=== PATIENT | male | born 1975 | race Two or more races ===

== ENCOUNTER → 2022-12-15 11:23 | Outpatient (BNVA) | payer OTHER, SELFPAY | PROVIDERS: Visit Provider Internal Medicine | DX: M54.12 Radiculopathy, cervical region (principal); M79.621 Pain in right upper arm | CPT/HCPCS: 99202 ==

== ENCOUNTER → 2022-12-16 07:44 | Outpatient (BNVA) | payer OTHER, SELFPAY | PROVIDERS: Visit Provider Internal Medicine | DX: M25.511 Pain in right shoulder (principal) | CPT/HCPCS: 99213 ==

== ENCOUNTER → 2022-12-18 15:18 | Outpatient (BNVA) | payer OTHER, SELFPAY | PROVIDERS: Visit Provider Internal Medicine | DX: M25.511 Pain in right shoulder (principal); M54.12 Radiculopathy, cervical region | CPT/HCPCS: 99213 ==

== ENCOUNTER → 2022-12-30 14:48 | Outpatient (BNVA) | payer OTHER, SELFPAY | PROVIDERS: Visit Provider Internal Medicine | DX: M79.621 Pain in right upper arm (principal); M54.12 Radiculopathy, cervical region | CPT/HCPCS: 99213 ==

== ENCOUNTER → 2023-01-09 12:52 | Outpatient (BNVA) | payer OTHER, SELFPAY | PROVIDERS: Visit Provider Internal Medicine | DX: M50.123 Cervical disc disorder at C6-C7 level with radiculopathy (principal) | CPT/HCPCS: 99214 ==

== ENCOUNTER → 2023-01-13 13:46 | Outpatient (BNVA) | payer OTHER, SELFPAY | PROVIDERS: Visit Provider Internal Medicine | DX: M50.123 Cervical disc disorder at C6-C7 level with radiculopathy (principal) | CPT/HCPCS: 99213 ==

== ENCOUNTER → 2023-01-16 14:43 | Outpatient (BNVA) | payer OTHER, SELFPAY | PROVIDERS: Visit Provider Internal Medicine | DX: M79.631 Pain in right forearm (principal); M51.16 Intervertebral disc disorders with radiculopathy, lumbar region | CPT/HCPCS: 99214 ==

== ENCOUNTER → 2023-01-22 13:33 | Outpatient (BNVA) | payer OTHER, SELFPAY | PROVIDERS: Visit Provider Internal Medicine | DX: M79.621 Pain in right upper arm (principal); M54.12 Radiculopathy, cervical region | CPT/HCPCS: 99214 ==

== ENCOUNTER → 2023-02-02 14:50 | Outpatient (BNVA) | payer OTHER, SELFPAY | PROVIDERS: Visit Provider Internal Medicine | DX: M54.12 Radiculopathy, cervical region (principal); M79.662 Pain in left lower leg; M79.661 Pain in right lower leg | CPT/HCPCS: 99213 ==

== ENCOUNTER → 2023-02-24 14:28 | Outpatient (BNVA) | payer OTHER, SELFPAY | PROVIDERS: Visit Provider Internal Medicine | DX: M54.12 Radiculopathy, cervical region (principal); R25.2 Cramp and spasm; M79.605 Pain in left leg; M79.604 Pain in right leg | CPT/HCPCS: 99213 ==

== ENCOUNTER → 2024-10-10 13:37 | Outpatient (BNVA) | payer OTHER, SELFPAY | PROVIDERS: Visit Provider Physician Assistant Medical | DX: M24.811 Other specific joint derangements of right shoulder, not elsewhere classified (principal); S16.1XXA Strain of muscle, fascia and tendon at neck level, initial encounter; S46.811A Strain of other muscles, fascia and tendons at shoulder and upper arm level, right arm, initial encounter; S39.012A Strain of muscle, fascia and tendon of lower back, initial encounter; X50.9XXA Other and unspecified overexertion or strenuous movements or postures, initial encounter; M54.16 Radiculopathy, lumbar region | CPT/HCPCS: 72110; 73030; 99204 ==

== ENCOUNTER → 2024-10-13 09:47 | Outpatient (BNVA) | payer OTHER, SELFPAY | PROVIDERS: Visit Provider Physician Assistant Medical | DX: M54.12 Radiculopathy, cervical region (principal); M25.511 Pain in right shoulder; M54.16 Radiculopathy, lumbar region | CPT/HCPCS: 99213 ==

== ENCOUNTER → 2024-10-18 10:48 | Outpatient (BNVA) | payer OTHER, SELFPAY | PROVIDERS: Visit Provider Physician Assistant Medical | DX: M54.12 Radiculopathy, cervical region (principal); M25.511 Pain in right shoulder; M24.811 Other specific joint derangements of right shoulder, not elsewhere classified; M54.16 Radiculopathy, lumbar region | CPT/HCPCS: 99213 ==

== ENCOUNTER → 2024-10-24 13:08 | Outpatient (BNVA) | payer OTHER, SELFPAY | PROVIDERS: Visit Provider Physician Assistant Medical | DX: M54.12 Radiculopathy, cervical region (principal); M24.811 Other specific joint derangements of right shoulder, not elsewhere classified; S46.811A Strain of other muscles, fascia and tendons at shoulder and upper arm level, right arm, initial encounter; S39.012A Strain of muscle, fascia and tendon of lower back, initial encounter; M54.16 Radiculopathy, lumbar region; X50.9XXA Other and unspecified overexertion or strenuous movements or postures, initial encounter | CPT/HCPCS: 99213 ==

== ENCOUNTER → 2024-10-31 10:52 | Outpatient (BNVA) | payer OTHER, SELFPAY | PROVIDERS: Visit Provider Physician Assistant Medical | DX: M54.12 Radiculopathy, cervical region (principal); M24.811 Other specific joint derangements of right shoulder, not elsewhere classified; M54.16 Radiculopathy, lumbar region; S39.012D Strain of muscle, fascia and tendon of lower back, subsequent encounter; X50.9XXD Other and unspecified overexertion or strenuous movements or postures, subsequent encounter | CPT/HCPCS: 99213 ==

== ENCOUNTER 2024-11-23 12:42 | Outpatient (REF) | payer OTHER, SELFPAY ==
--- NOTE | ~2024-11-23 | XR_ITS ---
EXAMINATION: XR SHOULDER 2 OR MORE VIEWS RIGHT HISTORY: M25.511 - Pain in right shoulder COMPARISON: Comparison is made with the prior examination dated 10/10/2024. FINDINGS: Two views of the right shoulder are submitted. Osseous mineralization is normal. There is no fracture or dislocation. The glenohumeral joint is maintained. Again seen is moderate osteoarthritis of the AC joint with osteophyte formation and joint space narrowing. The soft tissues are unremarkable. XR/XR shoulder RT min 2V IMPRESSION: Moderate osteoarthritis of the AC joint. Electronically signed by: Michael Jamison MD 11/24/2024 01:34 PM EDT
--- OUTSIDE RECORDS SUMMARY | 2024-11-24 15:16 | XMS_ITS | Clinical Summary ---
Author Organization [facility] Address [address] [place] [address] Care Team Providers Care Temperature Inspector Name Role Phone Allan Dejesus Primary Care Provider Source Comments PLEASE NOTE, if this patient [...] Description 12/07/2024 3:40 PM EDT Office Visit [facility] [address] [place] [id number] Allan Dejesus PA [address] [place] [address] Stefania Gordon [address] [place] [address] Health Maintenance Due Date Last Done Comments Anxiety Screening 1976 CT Colonography 2021 Colonoscopy 2021 Colorectal Cancer Screening 2021 FIT/gFOBT 2021 Fecal DNA 2021 Flexible Sigmoidoscopy 2021 Annual Preventive Care Visit 12/03/202204/2022, 12/07/2020, 09/30/2017, Additional history exists Imm-Hepatitis B (2 of 2 - Cp G 2-dose series) 03/16/2023 02/16/2023 [id number] ( season) 2024 021, 11/19/2020 Imm-Influenza (#1) [...] A1C 6.2(H) <5.7 % of total Hgb [facility] Comment: For someone without known diabetes, a [...] children. MEAN PLASMA GLUCOSE 143 mg/dL (calc) [facility] Blood Blood / Unknown 09/17/2023 4 :31 PM EST 09/17/2023 4:32 PM EST us Allan MENDEZ LAB - BLOOD DRAW Edited Result - Final [employer] [address] [address], [employer] [address] [address] * HIV 1/2 AG & AB W/RFLX (4TH GEN) (02/17/2023 3:34 PM EDT) HIV AG/AB, 4TH GEN NON-REAC TIVE NON-REAC TIVE [employer] [facility] Comment: HIV-1 antigen and HIV-1/HIV-2 [...] ?? For additional information please refer to http://Exposed Vocals.Feniks/faq/VKK267 (This link is being provided for informational/ educational purposes only.) The performance of this assay has not been clinically validated in patients less than 2 years old. Blood Blood / Unknown 02/17/2023 3 :34 PM EDT 02/17/2023 3:35 PM EDT Allan MENDEZ LAB - BLOOD DRAW Final Result [facility] [address] [place] [address], [employer] [address] [address] * (ABNORMAL) LIPID PANEL (02/17/2023 9:24 AM EDT) [facility] CHOLESTEROL, TOTAL 178 <200 mg/dL [employer] [facility] HDL CHOLESTEROL 36(L) > OR = 40 mg/dL [facility] TRIGLYCERIDES 150(H) <150 mg/dL [facility] LDL-CHOLESTEROL 116(H) 99 mg/dL (calc) [facility] Comment: Reference range: <100 Desirable range <100 mg/dL for primary prevention; ?? <70 mg/dL for patients with CHD or diabetic patients with > or = 2 CHD risk factors. LDL-C is now calculated using the Brianna calculation, which is a validated novel method providing better accuracy than the Friedewald equation in the estimation of LDL-C. Sudheer CRYSTAL et al. KEYA. 2013;310(19): 1595-1584 (http://education.[employer].appCREAR/faq/MHZ313) CHOL/HDLC RATIO 4.9 <5.0 (calc) [facility] NON-HDL CHOLESTEROL 142(H) <130 mg/dL (calc) [facility] Comment: For patients with diabetes plus 1 major ASCVD risk factor, treating to a non-HDL-C goal of <100 mg/dL (LDL-C of <70 mg/dL) is considered a therapeutic option. Blood Blood / Unknown 02/17/2023 9 :24 AM EDT 02/17/2023 9:25 AM EDT us Allan MENDEZ LAB - BLOOD DRAW Final Result Performing Organization Address [facility]/ZIP Co de Phone Number [employer] [address] [place] [address], [employer] [address] [address] * HEPATITIS C AB W/RFLX HCV RNA, QT, RT PCR (03/04/2022 2:37 PM EDT) HEPATITIS C ANTIBODY NON-REACT RYAN NON-REACT RYAN [facility] SIGNAL TO CUT-OFF 0.19 <1.00 [facility] Comment: HCV antibody was non-reactive. There is no laboratory evidence of HCV infection. In most cases, no further action is required. However, if recent HCV exposure is suspected, a test for HCV RNA (test code 07953) is suggested. For additional information please refer to http://education.Feniks/faq/IJB17h3 (This link is being provided for informational/ educational purposes only.) Blood Blood / Unknown 03/04/2022 2 :37 PM EDT 03/04/2022 2:37 PM EDT us Allan MENDEZ LAB - BLOOD DRAW Edited Result - Final Performing Organization Address City/[facility]/ZIP Co de Phone Number [employer] [facility] [address] [address], [employer] [address],[facility] [place] [address] from Last 3 Months or Most Recently Relevant to Health Maintenance [place] [facility] Care Teams Temperature Inspector Relationship Specialty Start Date End Date Allan Dejesus PA [address] [place] [address] PCP - General Internal Medicine 07/29/16
--- OUTSIDE RECORDS SUMMARY | 2024-11-24 15:16 | XMS_ITS | Clinical Summary ---
Author Organization [facility] Address [address] [place] [address] Phone Care Team Providers Care Beater Engineer Name Role Phone Arun Givens MD Primary Care Provider [phone] Allergies No known active allergies Medications PARoxetine [...] EDT - 10/09/2024 11:[address] [facility] [address] [place] [address] Arun Feldman MD Cervical radiculopathy [...] [place]ID - [place] GENER[place] GENER[place] Care Teams Beater Engineer Relationship Specialty Start Date End Date Arun Givens MD [facility] [place] [address] PCP - General Internal Medicine 12/05/21
== END 2024-11-23 12:43 | disposition home or self-care (01) ==
LOC: HO.HOSX 12:42
PROVIDERS: Visit Provider Orthopaedic Surgery
DX: M25.511 Pain in right shoulder (principal)
CPT/HCPCS: 73030; 99202

== ENCOUNTER 2024-11-23 14:29 | Outpatient (AMB) | payer OTHER, SELFPAY ==
--- NOTE | 2024-11-23 14:32 | MHC.OFFVIS ---
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 While at work while pushing/pulling ~500lbs he strained his right shoulder - work connection has concerns of cervical and lumbar radiculopathy. He was given Gabapentin, methocarbamol, lidocaine patches and was also referred to a chiropractor. He has no relief with the chiropractor and was later also prescribed prednisone. Patient was previously seen at [facility] for his neck and was given injections, but they no longer take WC. He states that he has had this same injury before about 2 years ago. He informed me that he re injured his shoulder on 10/07/24. The patient states that he has seen Dr. Ruiz for his neck pain in the past. He describes his neck pain as sharp in nature. His neck pain radiates down his right arm. He also reports weakness in his right arm. He states that he has not had an MRI of his cervical spine or right shoulder. Configuration Specialist Services: Configuration Specialist Present (Andre ([id number])) Allergies No Known Allergies Allergy (Verified 11/23/24 14:41) Medication List - Last Reconciled 11/23/24 by Glynn Paz MD duloxetine 60 mg PO DAILY lidocaine 5% 1 patch topically 1 patch daily q 12 hours; leave on most painful area for up to 12 hrs lorazepam (Ativan) 0.5 mg PO DAILY oxycodone-acetaminophen 5-325 mg 1 tab PO DAILY valsartan-hydrochlorothiazide 160-25 mg 1 tab PO DAILY [facility] Social History (Updated 11/23/24 @ 14:44 by Shelby Gordon) Alcohol intake: never Patient Tobacco Use Status: Never used Tobacco Current occupational status: unemployed Current occupation: munitions factory worker/ right hand dominant Physical Exam Vital Signs: BMI result Body Mass Index 41.3 Const Other: Well-nourished well-developed very friendly male awake alert and oriented x3 in no acute distress Neck Other: Cervical spine examination shows right-sided paraspinal muscle tenderness, pain with range of motion, positive Spurling's test, 4/5 strength with testing of his right biceps and wrist extensors when compared to 5/5 strength on his left side Extrem Other: Right shoulder examination shows decreased range of motion when compared to his left shoulder, 4+ out of 5 strength with supraspinatus testing, positive impingement signs, tenderness over his acromioclavicular joint, no instability Results Reviewed Results Reviewed: X-rays of the patient's right shoulder show severe acromioclavicular joint narrowing, a type 2 acromion, no acute bony abnormalities Assessment & Plan Assessment & Plan (1) Right shoulder pain: Code(s): M25.511 - Pain in right shoulder Category: Medical (2) Neck pain on right side: Code(s): M54.2 - Cervicalgia Category: Medical Plan Mr. Steven Harris presents with progressively worsening neck pain which radiates into his right arm as well as associated right arm weakness possibly due to cervical stenosis versus a disc herniation. Thus, I will send the patient for an MRI of his cervical spine for further evaluation. I will see him back once the MRI is completed to discuss the findings. The patient also has right shoulder pain and weakness due to impingement syndrome and possible rotator cuff tearing. We will hold off on a right shoulder MRI for now. The patient will continue with his range of motion exercises in the meantime to prevent stiffness. He will contact me prior to his follow-up appointment should his symptoms worsen in any way. I spent 21 minutes in reviewing the patient's records and imaging studies, seeing the patient and documenting in the medical record. Orders: Orders MR cervical spine wo con Today M54.2 - Cervicalgia XR shoulder RT min 2V Today M25.511 - Pain in right shoulder Coding Level of Care Code New Pt Level 3 (78006) Complex EM visit Add On G2211 Diagnoses Right shoulder pain M25.511 Neck pain on right side M54.2
[2024-11-23 14:44] VITALS: BMI 41.3
--- OUTSIDE RECORDS SUMMARY | 2024-11-23 15:47 | XMS_ITS | Clinical Summary ---
Author Organization [facility] Address [address] [place] [address] Care Team Providers Care Wet Pan Operator Name Role Phone Allan Dejesus Primary Care Provider [phone] Source Comments PLEASE NOTE, if this patient is a minor, it may be UNLAWFUL to discuss sensitive information that is contained in these records (such as FAMILY PLANNING, MENTAL HEALTH or SUBSTANCE ABUSE) with the minor patient's parent or other person without the patient's specific authorization.[facility] Allergies No known active allergies Medications blood pressure monitorIndicatio ns:Essential hypertension Goal BP < 130/80 1 Kit 2 Active compr.lisa mulligan long, largeIn dications:Periph eral edema Use for compression goal 15-20 mmHg 14 Each 2 Active blood pressure monitorIndicatio ns:Essential hypertension Goal < 130/80 1 Kit 2 Active hydrocortisone (ANUSOL-HC) 2.5 % topical creamIndications :Hemorrhoids, unspecified hemorrhoid type Place rectally 2 (two) times daily 30 g 3 Active mupirocin calcium (BACTROBAN) 2 % creamIndications :Folliculitis Apply topically 3 (three) times daily 15 g 2 4 Active mupirocin (BACTROBAN) 2 % ointmentIndicati ons:Folliculitis Apply 1 Application topically 3 (three) times daily 22 g 4 Active traMADoL (ULTRAM) 50 mg tablet Take 1 Tablet by mouth every 6 (six) hours as needed for pain 45 Tablet 4 Active pregabalin (LYRICA) 75 mg capsule Take 75 mg by mouth 2 (two) times daily 4 Active PARoxetine (PAXIL) 10 mg tabletIndication s:Anxiety Take 1 Tablet by mouth every morning 60 Tablet 1 4 Active valsartan-hydroc hlorothiazide (DIOVAN-HCT) 160-25 mg per tabletIndication s:Essential hypertension Take 1 Tablet by mouth once daily 90 Tablet 4 Active Active Problems Problem Noted Date Diagnosed Date Food insecurity 10/22/2023 Financial difficulties 10/22/2023 Lack of access to transportation 10/22/2023 Essential hypertension 09/05/2023 Obesity (BMI 35.0-39.9 without comorbidity) 04/27 Prediabetes 07/28/2014 Vitamin D deficiency disease 07/26/2014 Resolved Problems Problem Noted Date Diagnosed Date Resolved Date Lumbosacral radiculopathy 07/26/2014 Immunizations Immunization Administration Dates Next Due Flu, Preservative Free 05/21/2023,05/14/2022 Hep B,adult,adjuvanted (HEPLISAV) 02/16/2023 INFLUENZA, SEASONAL, INJECTABLE 06/04/2016 Moderna COVID-19 Vaccine, re d cap blue label, 12+ Primary Series 12/17/2020,11/19/2020 TDAP 03/18/2021 Family History Medical History Relation Name Comments No Known Problems Brother 4 COPD Father Cancer Father Leukemia Hypertension Mother No Known Problems Sister 1 Relation Name Status Comments Brother 4 Alive Father Mother Alive Sister 1 Alive Social History Tobacco Use Types Packs/Day Years Used Date Smoking Tobacco: Never Smokeless Tobacco: Never Alcohol Use Standard Drinks/Week Comments Yes 0 (1 standard drink = 0.6 oz pur e alcohol) sometimes Social Connections Answer Date Recorded Connectedness 1 10/22/2023 Financial Resource Strain Answer Date R ecorded Financial Resource Strain 2 2023 Stress Answer Date Recorded Stress 1 10/22/2023 Physical Activity Answer Date Recorded Physical Activity 0 03/19/2019 Food Insecurity Answer Date Recorded Food 2 10/22/2023 Transportation Needs Answer Date Record ed Transportation 1 10/22/2023 Housing Stability Answer Date Recorded Housing 1 10/22/2023 Safety and Environment Answer Date Romeo rded Safety 1 10/22/2023 Utilities Answer Date Recorded Utilities 1 10/22/2023 Employment Answer Date Recorded Employment 0 03/19/2019 Sex and Gender Information Value Date Recorded Sex Assigned at Male 10/01/2017 5:35 AM PST Legal Sex Male 11:55 AM PDT Gender Identity Male 10/01/2017 5:35 AM PST Sexual Orientation Straight 10/01/2017 5: 35 AM PST Last Filed Vital Signs Vital Sign Reading Time Taken Comments Blood Pressure 122/84 02/03/2024 5:00 PM EDT Pulse 78 02/03/2024 5:00 PM EDT Temperature 37 ??C (98.6 ??F) 02/03/2024 5:00 PM EDT Respiratory Rate 18 02/03/2024 5:00 PM EDT Oxygen Saturation 97% 02/03/2024 5:00 PM EDT Inhaled Oxygen Concentration - - Weight 126.6 kg (279 lb) 02/03/2024 5:00 PM EDT Height 172.7 cm (5' 8 ) 02/03/2024 5:00 PM EDT Body Mass Index 42.42 02/03/2024 5:00 PM EDT Plan of Treatment Upcoming Encounters Date Type Department Care Team (Late st Contact Info) Description 12/07/2024 3:40 PM EDT Office Visit [facility]ly [facility] [address] [place] [id number] Allan Dejesus PA [address] [place] [address] Stefania Gordon [address] [place] [address] Health Maintenance Due Date Last Done Comments Anxiety Screening [address] CT Colonography 2021 Colonoscopy 2021 Colorectal Cancer Screening 2021 FIT/gFOBT 2021 Fecal DNA 2021 Flexible Sigmoidoscopy 2021 Annual Preventive Care Visit 12/03/202204/2022, 12/07/2020, 09/30/2017, Additional history exists Imm-Hepatitis B (2 of 2 - Cp G 2-dose series) 03/16/2023 02/16/2023 Emb-XYWWP-50 ( season) 2024 021, 11/19/2020 Imm-Influenza (#1) 2024 05/21/2023, 1 , 06/04/2016, Additional history exists Alcohol and Drug Screen 07/27/2024 02/17/20 23, 08/14/2022, 12/03/2021, Additional history exists Depression Annual Screen 07/27/2024 02/16/2023, 04/27 Diabetes Screening 09/17/2024 09/17/2023, 0 02/17/2023, 12/04/2021, Additional history exists Tobacco Screening 02/02/2025 02/03/2024 Lipid Screening 02/17/2026 02/17/2023, 11/24, 01/02/2021, Additional history exists Imm-DTaP/Tdap/Td (4 - Td or Tdap) 08/03/2034 08/03/2024, 03/18/2021, 05/05/2009 (Managed by Outside Provider) Hepatitis C Screening Completed 03/04/2022, 018 HIV Screening Completed 02/17/2023, 03/2022, 10/09/2017 Procedures Procedure Name Priority Date/Time Associated Diagnosis Comments OTHER ORDERS SCANNED DOCUMENT 10/11/2024 3:00 AM EDT OTHER ORDERS SCANNED DOCUMENT 10/10/2024 3:00 AM EDT HGBA1C W/MPG Routine 09/17/2023 4:31 PM EST Prediabetes Obesity (BMI 35.0-39.9 without comorbidity) Essential hypertension Routine general medical examination at a health care facility HIV 1/2 AG & AB W/RFLX (4TH GEN) Routine 02/17/2023 3:34 PM EDT Exposure to HIV LIPID PANEL Routine 02/17/2023 9:24 AM EDT Routine general medical examination at a health care facility Obesity (BMI 35.0-39.9 without comorbidity) Prediabetes Essential hypertension HEPATITIS C AB W/RFLX HCV RNA, QT, RT PCR Routine 03/04/2022 2:37 PM EDT Exposure to sexually transmitted disease (STD) from Last 3 Months or Most Recently Relevant to Health Maintenance Results * OTHER ORDERS SCANNED DOCUMENT (10/11/2024 3:00 AM EDT) Only the most recent of2 resultswithin the time period is included. 10/11/2024 3:00 AM EDT us Allan MENDEZ SCAN OTHER ORDERS Final Result * (ABNORMAL) HGBA1C W/MPG (09/17/2023 4:31 PM EST) HEMOGLOBIN A1C 6.2(H) <5.7 % of total Hgb [email or web address] Comment: For someone without known diabetes, a hemoglobin A1c value between 5.7% and 6.4% is consistent with prediabetes and should be confirmed with a follow-up test. For someone with known diabetes, a value <7% indicates that their diabetes is well controlled. A1c targets should be individualized based on duration of diabetes, age, comorbid conditions, and other considerations. This assay result is consistent with an increased risk of diabetes. Currently, no consensus exists regarding use of hemoglobin A1c for diagnosis of diabetes for children. MEAN PLASMA GLUCOSE 143 mg/dL (calc) [email or web address] Blood Blood / Unknown 09/17/2023 4 :31 PM EST 09/17/2023 4:32 PM EST us Allan MENDEZ LAB - BLOOD DRAW Edited Result - Final [facility] [address] [address], [employer] [address] [address] * HIV 1/2 AG & AB W/RFLX (4TH GEN) (02/17/2023 3:34 PM EDT) HIV AG/AB, 4TH GEN NON-REAC TIVE NON-REAC TIVE [facility] Comment: HIV-1 antigen and HIV-1/HIV-2 antibodies were not detected. There is no laboratory evidence of HIV infection. PLEASE NOTE: This information has been disclosed to you from records whose confidentiality may be protected by state law. ??If your state requires such protection, then the state law prohibits you from making any further disclosure of the information without the specific written consent of the person to whom it pertains, or as otherwise permitted by law. A general authorization for the release of medical or other information is NOT sufficient for this purpose. ?? For additional information please refer to http://[employer].Dodreams/faq/MPM645 (This link is being provided for informational/ educational purposes only.) The performance of this assay has not been clinically validated in patients less than 2 years old. Blood Blood / Unknown 02/17/2023 3 :34 PM EDT 02/17/2023 3:35 PM EDT Allan MENDEZ LAB - BLOOD DRAW Final Result [facility] [address] [place] [address], [facility] [address] [address] * (ABNORMAL) LIPID PANEL (02/17/2023 9:24 AM EDT) [facility] Signature CHOLESTEROL, TOTAL 178 <200 mg/dL [facility] HDL CHOLESTEROL 36(L) > OR = 40 mg/dL [email or web address] TRIGLYCERIDES 150(H) <150 mg/dL [email or web address] LDL-CHOLESTEROL 116(H) 99 mg/dL (calc) [email or web address] Comment: Reference range: <100 Desirable range <100 mg/dL for primary prevention; ?? <70 mg/dL for patients with CHD or diabetic patients with > or = 2 CHD risk factors. LDL-C is now calculated using the Brianna calculation, which is a validated novel method providing better accuracy than the Friedewald equation in the estimation of LDL-C. Sudheer CRYSTAL et al. KEYA. 2013;310(19): 1068-6730 (http://education.RockBee.Actacell/faq/XHR994) CHOL/HDLC RATIO 4.9 <5.0 (calc) [email or web address] NON-HDL CHOLESTEROL 142(H) <130 mg/dL (calc) [email or web address] Comment: For patients with diabetes plus 1 major ASCVD risk factor, treating to a non-HDL-C goal of <100 mg/dL (LDL-C of <70 mg/dL) is considered a therapeutic option. Blood Blood / Unknown 02/17/2023 9 :24 AM EDT 02/17/2023 9:25 AM EDT us Allan MENDEZ LAB - BLOOD DRAW Final Result Performing Organization Address [facility]/ZIP Co de Phone Number [facility] [address] [place] [address], [employer] [address] [address] * HEPATITIS C AB W/RFLX HCV RNA, QT, RT PCR (03/04/2022 2:37 PM EDT) HEPATITIS C ANTIBODY NON-REACT RYAN NON-REACT RYAN [email or web address] SIGNAL TO CUT-OFF 0.19 <1.00 [email or web address] Comment: HCV antibody was non-reactive. There is no laboratory evidence of HCV infection. In most cases, no further action is required. However, if recent HCV exposure is suspected, a test for HCV RNA (test code 11048) is suggested. For additional information please refer to http://education.Dodreams/faq/UXT62g8 (This link is being provided for informational/ educational purposes only.) Blood Blood / Unknown 03/04/2022 2 :37 PM EDT 03/04/2022 2:37 PM EDT us Allan MENDEZ LAB - BLOOD DRAW Edited Result - Final Performing Organization Address [facility]/ZIP Co de Phone Number [facility] [address] [address], [employer] [address],[facility] [place] [address] from Last 3 Months or Most Recently Relevant to Health Maintenance Insurance [place] [facility] Care Teams Wet Pan Operator Relationship Specialty Start Date End Date Allan Dejesus PA [address] [place] [address] PCP - General Internal Medicine 07/29/16
--- OUTSIDE RECORDS SUMMARY | 2024-11-23 15:47 | XMS_ITS | Clinical Summary ---
Author Organization [facility] Address [address] [place] [address] Phone Care Team Providers Care Water Fabricator Operator Name Role Phone Arun Givens MD Primary Care Provider [phone] Allergies No known active allergies Medications PARoxetine (PAXIL) 10 mg tablet Take 1 tablet (10 mg total) by mouth 1 (one) time each day in the morning. Active pregabalin (LYRICA) 75 mg capsule Take 1 capsule (75 mg total) by mouth 2 (two) times a day. Max Daily Amount: 150 mg Active traMADoL (ULTRAM) 50 mg tablet Take 1 tablet (50 mg total) by mouth every 6 (six) hours if needed. Max Daily Amount: 200 mg Active mupirocin (BACTROBAN) 2 % ointment Apply topically 3 times daily. Active mupirocin (BACTROBAN) 2 % cream Apply topically 3 times daily. Active blood pressure monitor kit by Does not apply route. Active medical supply, miscellaneous (MISCELLANEOUS MEDICAL SUPPLY MISC) ELASTIC BANDAGES & SUPPORTS (MEDICAL COMPRESSION STOCKINGS) MISC by Does not apply route. - Does not apply Active valsartan-hydroCH LOROthiazide (DIOVAN-HCT) 160-25 mg per tablet Take 1 tablet by mouth 1 (one) time each day. Active hydrocortisone 2.5 % cream Apply topically 2 times daily. Active methocarbamoL (ROBAXIN) 500 mg tablet Take 1 tablet (500 mg total) by mouth 2 (two) times a day for 10 days. 20 tablet 5 Active Active Problems No known active problems Encounters Date Type Department Care Team Description 10/09/2024 10:05 AM EDT - 10/09/2024 11:08 AM EDT Emergency [facility] Emergency [address] [place] [address] Arun Feldman MD Cervical radiculopathy (Primary Dx) Discharge Disposition: Home or Self Care from Last 3 Months Immunizations Name Administration Dates Next Due Tdap Tetanus diptheria acell ular pertussis (Boostrix; Adacel) 7yo and older 08/03/2024 Medical History Medical History Date Comments Hypertension Hyperlipidemia Family History Medical History Relation Name Comments Hypertension Mother Relation Name Status Comments Mother Social History Tobacco Use Types Packs/Day Years Used Date Smoking Tobacco: Never Smokeless Tobacco: Never Alcohol Use Standard Drinks/Week Comments Yes 0 (1 standard drink = 0.6 oz pur e alcohol) Sex and Gender Information Value Date Recorded Sex Assigned at Male 08/03/2024 5:45 PM EST Legal Sex Male 9:02 AM EST Gender Identity Male 08/03/2024 5:45 PM EST Sexual Orientation Not on file Obstetrics History Last Filed Vital Signs Vital Sign Reading Time Taken Comments Blood Pressure 160/80 10/09/2024 9:54 AM EDT Pulse 81 10/09/2024 9:54 AM EDT Temperature 36.7 ??C (98.1 ??F) 10/09/2024 9:54 AM ED T Respiratory Rate 18 10/09/2024 9:54 AM EDT Oxygen Saturation 97% 10/09/2024 9:54 AM EDT Inhaled Oxygen Concentration - - Weight 129 kg (284 lb 8 oz) 10/09/2024 9:54 AM E DT Height 175.3 cm (5' 9 ) 10/09/2024 9:54 AM EDT Body Mass Index 42.01 10/09/2024 9:54 AM EDT Plan of Treatment Health Maintenance Due Date Last Done Comments Colorectal Cancer Screening: Colonoscopy 06/29/2022 HIV Screening 06/29/2022 Social Influencers of Health Screening 06/29/2022 Hepatitis B Vaccines (2 of 2 - CpG 2-dose series) 03/16/2023 02/16/2023 Depression Screening 02/17/2024 02/16/2023 COVID-19 Vaccine ( season) 2024 12/17/2020, 11/19/2020 Hypertension/CHF/CAD Annual BMP Blood Test 08/04/2024 Influenza Vaccine (Season Ended) 2025 05/21/2023, 05/14/2022, 06/04/2016 Cholesterol Screening (Lipid Panel) 02/18/2028 02/17/2023, 02/17/2023, 01/02/2021, Additional history exists DTaP,Tdap,and Td Vaccines (3 - Td or Tdap) 08/03/2034 08/03/2024, 03/18/2021 Hepatitis C Screening Completed 03/04/2022, 018 HIB Vaccines Aged Out No longer eligi ble based on patient's age to complete this topic HPV Vaccines Aged Out No longer eligi ble based on patient's age to complete this topic Hepatitis A Vaccines Aged Out No long er eligible based on patient's age to complete this topic IPV Vaccines Aged Out No longer eligi ble based on patient's age to complete this topic MMR Vaccines Aged Out No longer eligi ble based on patient's age to complete this topic Meningococcal ACWY Vaccine Aged Out N o longer eligible based on patient's age to complete this topic Meningococcal B Vaccine Aged Out No l onger eligible based on patient's age to complete this topic Pneumococcal Vaccine: Pediatrics (0 to 5 Years) and At-Risk Patients (6 to 64 Years) Aged Out No longer eligible based on patient's age to complete this topic RSV Immunization Patients Under 20 months Aged Out No longer eligible based on patient's age to complete this topic Varicella Vaccines Aged Out No longer eligible based on patient's age to complete this topic Insurance MEDICAID - [place] GENERIC GENERIC Care Teams Water Fabricator Operator Relationship Specialty Start Date End Date Arun Givens MD [facility] [place] [address] PCP - General Internal Medicine 12/05/21
== END 2024-11-23 14:56 | disposition home or self-care (01) ==
LOC: HO.HOS 14:30
PROVIDERS: Visit Provider Orthopaedic Surgery
DX: M25.511 Pain in right shoulder (principal); M54.2 Cervicalgia
CPT/HCPCS: 99203; G2211

== ENCOUNTER → 2024-11-23 14:34 | Outpatient (BNV) | payer OTHER, SELFPAY | PROVIDERS: Visit Provider Radiology Diagnostic Radiology | DX: M25.511 Pain in right shoulder (principal) | CPT/HCPCS: 73030 ==

== ENCOUNTER 2024-12-08 19:52 | Outpatient (REF) | payer OTHER, SELFPAY ==
--- NOTE | ~2024-12-08 | MR_ITS ---
EXAMINATION: MR CERVICAL SPINE WITHOUT CONTRAST CLINICAL INFORMATION: Cervicalgia. COMPARISON: None available. TECHNIQUE: MRI of the cervical spine was obtained using routine sequences without contrast. FINDINGS: Patient discontinued the examination due to claustrophobia after the sagittal T2 sequence was performed. Only a localizer, and sagittal T2 sequences were able to be performed. The sagittal T2 sequence is highly motion degraded as well. Findings are essentially nondiagnostic. No scoliosis. Straightening of the normal lordosis. There are disc herniations at C5-6 and C6-7 oriented to the right, however cannot assess the cord due to motion. Cannot assess the neural foramen. MR/MR cervical spine wo con IMPRESSION: 1. Nondiagnostic exam due to claustrophobia as detailed above. 2. The motion degraded sagittal T2 sequence demonstrates right-sided disc herniations at C5-6 and C6-7, although cannot assess the effects on the cord or central canal due to motion and incomplete study. Recommend repeat examination with sedation if necessary. Electronically signed by: Capo Starks MD 12/09/2024 02:08 PM EDT
--- OUTSIDE RECORDS SUMMARY | 2024-12-08 19:57 | XMS_ITS | Clinical Summary ---
Author Organization [facility] Address [address] [place] [address] Phone Care Team Providers Care Washhouse Worker Name Role Phone Arun Givens MD Primary Care Provider [phone]- [phone] Allergies No known active allergies Medications PARoxetine [...] EDT - 10/09/2024 11:08 AM EDT Emergency [facility] Emergency [address] [place] [address] Arun Feldman MD Cervical radiculopathy [...] [place] Care Teams Washhouse Worker Relationship Specialty Start Date End Date Arun Givens MD [facility] [place] [address] PCP - General Internal Medicine 12/05/21
--- OUTSIDE RECORDS SUMMARY | 2024-12-08 19:57 | XMS_ITS | Clinical Summary ---
Author Organization [facility] Address [address] [place] [address] Care Team Providers Care Commercial Insurance Underwriter Name Role Phone Allan Dejesus Primary Care Provider [phone] Source Comments PLEASE NOTE, if this patient [...] mouth once daily 90 Tablet 4 Active tirzepatide (MOUNJARO) 2.5 mg/0.5 mL pnijIndications: Obesity (BMI 35.0-39.9 without comorbidity),Pre diabetes Inject 2.5 mg into the skin once a week 2 mL 5 Active Active Problems Problem Noted Date Diagnosed Date Routine adult health maintenance 12/07/2024 Colon cancer screening 12/07/2024 Food insecurity 10/22/2023 Financial difficulties 10/22/2023 Lack of access to transportation 10/22/2023 Essential hypertension 09/05/2023 Obesity (BMI 35.0-39.9 without comorbidity) 04/27 Prediabetes 07/28/2014 Vitamin D deficiency disease 07/26/2014 Resolved Problems Problem Noted Date Diagnosed Date Resolved Date Lumbosacral radiculopathy 07/26/2014 Encounters Date Type Department Care Team Description 12/07/2024 3:40 PM EDT Office Visit [facility] [address] [place] [address] Allan Dejesus PA Zayas, Juan Routine adult health maintenance (Primary Dx); Obesity (BMI 35.0-39.9 without comorbidity); Prediabetes; Essential hypertension; Colon cancer screening from Last 3 Months Immunizations Immunization Administration Dates Next Due Flu, Preservative Free 05/21/2023,05/14/2022 Hep B,adult,adjuvanted (HEPLISAV) 12/07/2024, INFLUENZA, SEASONAL, INJECTABLE 06/04/2016 Moderna COVID-19 Vaccine, re d cap blue label, 12+ Primary Series 12/17/2020,11/19/2020 TDAP 08/03/2024,03/18/2021 Family History Medical History Relation Name Comments [...] Sign Reading Time Taken Comments Blood Pressure 158/84 12/07/2024 3:28 PM EDT Pulse 88 12/07/2024 3:28 PM EDT Temperature 36.7 ??C (98.1 ??F) 12/07/2024 3:28 PM ED T Respiratory Rate 20 12/07/2024 3:28 PM EDT Oxygen Saturation 95% 12/07/2024 3:28 PM EDT Inhaled Oxygen Concentration - - Weight 129.7 kg (286 lb) 12/07/2024 3:28 PM EDT Height 172.7 cm (5' 8 ) 12/07/2024 3:28 PM EDT Body Mass Index 43.49 12/07/2024 3:28 PM EDT Plan of Treatment Health Maintenance Due Date Last Done Comments CT Colonography 2021 Colonoscopy 2021 Colorectal Cancer Screening 2021 FIT/gFOBT 2021 Fecal DNA 2021 Flexible Sigmoidoscopy 2021 [id number] ( season) 2024 021, 11/19/2020 Imm-Influenza (#1) 2024 05/21/2023, 1 , 06/04/2016, Additional history exists Alcohol and Drug Screen 07/27/2024 02/17/20 23, 08/14/2022, 12/03/2021, Additional history exists Tobacco Screening 02/02/2025 02/03/2024 Depression Monitoring 03/09/2025 12/07/2024 , 02/16/2023, 08/14/2022, Additional history exists Annual Preventive Care Visit 12/07/2025, 12/03/2021, 12/07/2020, Additional history exists Anxiety Screening 12/07/2025 12/07/2024 Diabetes Screening 12/07/2025 12/07/2024, 0 12/07/2024, 09/17/2023, Additional history exists Lipid Screening 02/17/2026 02/17/2023, 0507/2021, 01/02/2021, Additional history exists Imm-DTaP/Tdap/Td (4 - Td or Tdap) 08/03/2034 08/03/2024, 03/18/2021, 05/05/2009 (Managed by Outside Provider) Hepatitis C Screening Completed 03/04/2022, 018 HIV Screening Completed 02/17/2023, 0803/2022, 10/09/2017 Imm-Hepatitis B Completed 12/07/2024, 02/16/2023 Procedures Procedure Name Priority Date/Time Associated Diagnosis Comments RPR (MONITOR) W/REFL TITER Routine 12/07/2024 4:17 PM EDT BLOOD COUNT COMPLETE AUTOMATED Routine 12/07/2024 4:17 PM EDT Obesity (BMI 35.0-39.9 without comorbidity) Prediabetes Essential hypertension Routine adult health maintenance COMPREHENSIVE METABOLIC PANEL Routine 12/07/2024 4:17 PM EDT Obesity (BMI 35.0-39.9 without comorbidity) Prediabetes Essential hypertension Routine adult health maintenance HGBA1C W/MPG Routine 12/07/2024 4:17 PM EDT Prediabetes Routine adult health maintenance OTHER ORDERS SCANNED DOCUMENT 10/11/2024 3:00 AM EDT OTHER ORDERS SCANNED DOCUMENT 10/10/2024 3:00 AM EDT HIV 1/2 AG & AB W/RFLX (4TH [...] Recently Relevant to Health Maintenance Results * (ABNORMAL) HGBA1C W/MPG (12/07/2024 4:17 PM EDT) HEMOGLOBIN A1C 7.1(H) <5.7 % [employer] Comment: For someone without known diabetes, a hemoglobin A1c value of 6.5% or greater indicates that they may have diabetes and this should be confirmed with a follow-up test. For someone with known diabetes, a value <7% indicates that their diabetes is well controlled and a value greater than or equal to 7% indicates suboptimal control. A1c targets should be individualized based on duration of diabetes, age, comorbid conditions, and other considerations. Currently, no consensus exists regarding use of hemoglobin A1c for diagnosis of diabetes for children. ?? MEAN PLASMA GLUCOSE 175 mg/dL (calc) [employer] Blood Blood / Unknown 12/07/2024 4 :17 PM EDT 12/07/2024 4:18 PM EDT Allan MENDEZ LAB - BLOOD DRAW Edited Result - Final [email or web address] [address] [address], [employer] [facility] [address] [place] [address] * RPR (MONITOR) W/REFL TITER (12/07/2024 4:17 PM EDT) Pathologist [facility] RPR (MONITOR) W/REFL TITER NON-REACT RYAN NON-REACT RYAN [employer] 12/07/2024 4:17 PM EDT 12/07/2024 4:18 PM EDT Allan MENDEZ LAB - BLOOD DRAW Final Result [email or web address] [address] [address], [employer] [address] [place] [address] * (ABNORMAL) BLOOD COUNT COMPLETE AUTOMATED (12/07/2024 4:17 PM EDT) [facility] WHITE BLOOD CELL COUNT 15.0(H) 3.8 - 10.8 Thousand/ uL [employer] RED BLOOD CELL COUNT 4.93 4.20 - 5.80 Million/u L [employer] HEMOGLOBIN 14.7 13.2 - 17.1 g/dL [employer] HEMATOCRIT 44.6 38.5 - 50.0 % [employer] MCV 90.5 80.0 - 100.0 fL [employer] MCH 29.8 27.0 - 33.0 pg [employer] MCHC 33.0 32.0 - 36.0 g/dL [employer] Comment: For adults, a slight decrease in the calculated MCHC value (in the range of 30 to 32 g/dL) is most likely not clinically significant; however, it should be interpreted with caution in correlation with other red cell parameters and the patient's clinical condition. RDW 14.2 11.0 - 15.0 % [employer] PLATELET COUNT 533(H) 140 - 400 Thousand/ uL [employer] MPV 10.2 7.5 - 12.5 fL [employer] Blood Blood / Unknown 12/07/2024 4 :17 PM EDT 12/07/2024 4:18 PM EDT Allan MENDEZ LAB - BLOOD DRAW Edited Result - Final [email or web address] [facility] [address] [address], [employer] [facility] [address] [place] [address] * (ABNORMAL) COMPREHENSIVE METABOLIC PANEL (12/07/2024 4:17 PM EDT) GLUCOSE 108(H) 65 - 99 mg/dL [employer] [facility] Comment: ?Fasting reference interval For someone without known diabetes, a glucose value between 100 and 125 mg/dL is consistent with prediabetes and should be confirmed with a follow-up test. UREA NITROGEN (BUN) 14 7 - 25 mg/dL [employer] CREATININE (blood) 0.92 0.60 - 1.29 mg/dL [employer] EGFR 103 > OR = 60 mL/min/1. 73m2 [employer] BUN/CREATININE RATIO SEE NOTE: [employer] Comment: ?? Not Reported: BUN and Creatinine are within ?? reference range. ? SODIUM 136 135 - 146 mmol/L [employer] POTASSIUM 4.7 3.5 - 5.3 mmol/L [employer] CHLORIDE 98 98 - 110 mmol/L [employer] CARBON DIOXIDE 30 20 - 32 mmol/L [employer] CALCIUM 10.4(H) 8.6 - 10.3 mg/dL [employer] PROTEIN, TOTAL 7.8 6.1 - 8.1 g/dL [employer] ALBUMIN 4.3 3.6 - 5.1 g/dL [employer] GLOBULIN 3.5 1.9 - 3.7 g/dL (calc) [employer] ALBUMIN/GLOBULI N RATIO 1.2 1.0 - 2.5 (calc) [employer] BILIRUBIN, TOTAL 0.2 0.2 - 1.2 mg/dL [employer] ALKALINE PHOSPHATASE 59 36 - 130 U/L [employer] AST 25 10 - 40 U/L [employer] ALT 29 9 - 46 U/L [employer] Blood Blood / Unknown 12/07/2024 4 :17 PM EDT 12/07/2024 4:18 PM EDT us Allan MENDEZ LAB - BLOOD DRAW Edited Result - Final [facility] [address] [address], [employer] [address] [place] [address] * OTHER ORDERS SCANNED DOCUMENT (10/11/2024 3:00 AM EDT) Only the most recent of2 resultswithin the time period is included. 10/11/2024 3:00 AM EDT us Allan MENDEZ SCAN OTHER ORDERS Final Result * HIV 1/2 AG & AB W/RFLX (4TH GEN) (02/17/2023 3:34 PM EDT) HIV AG/AB, 4TH GEN NON-REAC TIVE NON-REAC TIVE [employer] [facility] Comment: HIV-1 antigen and HIV-1/HIV-2 antibodies were [...] ?? For additional information please refer to http://education.[employer].Bioqu[employer]ica/faq/RLT499 (This link is being provided for informational/ educational purposes only.) The performance of this assay has not been clinically validated in patients less than 2 years old. Blood Blood / Unknown 02/17/2023 3 :34 PM EDT 02/17/2023 3:35 PM EDT us Allan MENDEZ LAB - BLOOD DRAW Final Result Performing Organization Address City/[facility]/ZIP Co de Phone Number [facility] [address] [address], [employer] [address] [address] * (ABNORMAL) LIPID PANEL (02/17/2023 9:24 AM EDT) [facility] CHOLESTEROL, TOTAL 178 <200 mg/dL [facility] HDL CHOLESTEROL 36(L) > OR = 40 mg/dL [employer] TRIGLYCERIDES 150(H) <150 mg/dL [employer] LDL-CHOLESTEROL 116(H) 99 mg/dL (calc) [employer] Comment: Reference range: <100 Desirable range <100 mg/dL for primary prevention; ?? <70 mg/dL for patients with CHD or diabetic patients with > or = 2 CHD risk factors. LDL-C is now calculated using the Sudheer-Dena calculation, which is a validated novel method providing better accuracy than the Friedewald equation in the estimation of LDL-C. Sudheer SS et al. KEYA. 2013;310(19): 9713-2535 (http://education.[employer]/faq/GTV448) CHOL/HDLC RATIO 4.9 <5.0 (calc) [facility] NON-HDL CHOLESTEROL 142(H) <130 mg/dL (calc) [facility] Comment: For patients with diabetes plus 1 major ASCVD risk factor, treating to a non-HDL-C goal of <100 mg/dL (LDL-C of <70 mg/dL) is considered a therapeutic option. Blood Blood / Unknown 02/17/2023 9 :24 AM EDT 02/17/2023 9:25 AM EDT Allan MENDEZ LAB - BLOOD DRAW Final Result Performing Organization Address City/[facility]/ZIP Co de Phone Number [facility] [address] [address], [employer] [address] [address] * HEPATITIS C AB W/RFLX HCV RNA, QT, RT PCR (03/04/2022 2:37 PM EDT) HEPATITIS C ANTIBODY NON-REACT RYAN NON-REACT RYAN [employer] SIGNAL TO CUT-OFF 0.19 <1.00 [employer] Comment: HCV antibody was non-reactive. There is no laboratory evidence of HCV infection. In most cases, no further action is required. However, if recent HCV exposure is suspected, a test for HCV RNA (test code 57769) is suggested. For additional information please refer to http://education.[employer]/faq/DCH00k3 (This link is being provided for informational/ educational purposes only.) Blood Blood / Unknown 03/04/2022 2 :37 PM EDT 03/04/2022 2:37 PM EDT Allan MENDEZ LAB - BLOOD DRAW Edited Result - Final [facility] [address] [address], [employer] [address] [address] from Last 3 Months or Most Recently Relevant to Health Maintenance [place] [facility] S[employer] [place] [address] [place] [address] ACO Care Teams Commercial Insurance Underwriter Relationship Specialty Start Date End Date Allan Dejesus PA [address] [place] [address] PCP - General Internal Medicine 07/29/16
== END 2024-12-08 19:53 | disposition home or self-care (01) ==
LOC: HO.MRI 19:52
PROVIDERS: Visit Provider Orthopaedic Surgery
DX: M54.2 Cervicalgia (principal)
CPT/HCPCS: 72141

== ENCOUNTER → 2024-12-08 20:00 | Outpatient (BNV) | payer OTHER, SELFPAY | PROVIDERS: Visit Provider Radiology Diagnostic Radiology | DX: F40.240 Claustrophobia (principal); M50.122 Cervical disc disorder at C5-C6 level with radiculopathy; M50.123 Cervical disc disorder at C6-C7 level with radiculopathy | CPT/HCPCS: 72141 ==

== ENCOUNTER 2024-12-28 13:54 | Outpatient (AMB) | payer OTHER, SELFPAY ==
[2024-12-28 13:56] VITALS: BMI 41.3
--- NOTE | 2024-12-28 13:56 | A.OFFVIS_ITS ---
Vital Signs 12/28/24 13:56 Height 5 ft 9 in Weight 280 lb BMI 41.3 Intake Visit Reasons: OV- Cervical Spine MRI Review-[facility] Intake Note: Dinesh is a 48 year old right hand dominant male who presents today as a new patient dur to a work related injury to his right shoulder on 10/07/24. While at work while pushing/pulling ~500lbs he strained his right shoulder - work co nnection has concerns of cervical and lumbar radiculopathy. He was given Gabapentin, methocarbamol, lidocaine patches and was also referred to a chiropractor. He has no relief with the chiropractor and was later also prescribed prednisone. Patient was previously seen at [facility] for his neck and was given injections, but they no longer take WC. He states that he has had this same injury before about 2 years ago. He informed me that he re injured his shoulder on 10/07/24. The patient states that he has seen Dr. Ruiz for his neck pain in the past. He describes his neck pain as sharp in nature. His neck pain radiates down his right arm. He also reports weakness in his right arm. He recently had an MRI of his cervical spine at [facility]. Family Dinner Service Specialist Required: Yes Family Dinner Service Specialist Language: Safety Fire Boss Services: Family Dinner Service Specialist Offered & Declined Allergies No Known Allergies Allergy (Verified 12/28/24 13:57) Medication List - Last Reconciled 12/28/24 by Glynn Paz MD duloxetine 60 mg PO DAILY lidocaine 5% 1 patch topically 1 patch daily q 12 hours; leave on most painful area for up to 12 hrs oxycodone-acetaminophen 5-325 mg 1 tab PO DAILY valsartan-hydrochlorothiazide 160-25 mg 1 tab PO DAILY [facility] Social History (Updated 11/23/24 @ 14:44 by Shelby Gordon) Alcohol intake: never Patient Tobacco Use Status: Never used Tobacco Current occupational status: unemployed Current occupation: youth support worker/ right hand dominant Physical Exam Vital Signs: BMI result Body Mass Index 41.3 Neck Other: Cervical spine examination shows very minimal range of motion due to pain, positive Spurling's test Results Reviewed Results Reviewed: MRI of the patient's cervical spine shows evidence of severe stenosis on the right Assessment & Plan Assessment & Plan (1) Neck pain on right side: Code(s): M54.2 - Cervicalgia Category: Medical (2) Cervical stenosis of spinal canal: Code(s): M48.02 - Spinal stenosis, cervical region Category: Medical Plan Mr. Steven Harris presents with progressively worsening neck pain which radiates into his right arm due to cervical stenosis. Thus, the patient should be seen by a neurosurgeon. I will refer him to the Neurosurgery Department here at [facility]. I am not sure if they take workmen's compensation insurance. If they do not the patient is instructed to reach out to his primary care doctor and his workmen's compensation team for referral to a neurosurgeon. The patient will contact me prior to that appointment should his symptoms worsen in any way. The patient should remain out of work until neurosurgery evaluation. I spent 20 minutes in reviewing the patient's records and imaging studies, seeing the patient and documenting in the medical record. Orders: Referrals Neuro Spine Referral M48.02 - Spinal stenosis, cervical region, M54.2 - Cervicalgia Coding Level of Care Code Est Pt Level 3 (51476) Complex EM visit Add On G2211 Diagnoses Neck pain on right side M54.2 Cervical stenosis of spinal canal M48.02
--- OUTSIDE RECORDS SUMMARY | 2024-12-28 14:00 | XMS_ITS | Clinical Summary ---
Author Organization [facility] Address [address] [place] [address] Phone Care Team Providers Care Revenue Specialist Name Role Phone Arun Givens MD Primary Care Provider [phone] Allergies No known active allergies Medications PARoxetine [...] cream Apply topically 2 times daily. Active tirzepatide (MOUNJARO) 2.5 mg/0.5 mL injection Inject 0.5 mL (2.5 mg total) under the skin every 7 (seven) days. Active methocarbamoL (ROBAXIN) 500 mg tablet Take 1 tablet (500 mg total) by mouth 2 (two) times a day for 10 days. 20 tablet 10/10/19 25 025 Discontinu ed(Discont inued by another clinician) Active Problems No known active problems Encounters Date Type Department Care Team Description 12/12/2024 Telephone Gastroenterology - [place] [address] [facility] [address] [facility] [address] [place] [address] Lele Varner MD Special Procedure 10/09/2024 10:05 AM EDT - 10/09/2024 11:08 AM EDT Emergency [facility] [address] [place] [address] Arun Feldman MD Cervical radiculopathy [...] 06/29/2022 Social Influ[employer] of Health Screening 06/29/2022 COVID-19 Vaccine ( - season) 2024 12/17/2020, 11/19/2020 Influenza Vaccine (Season Ended) 2025 05/21/2023, 05/14/2022, 06/04/2016 Depression Screening 12/07/2025 12/07/2024 Hypertension/CHF/CAD Annual BMP Blood Test 12/07/2025 12/07/2024 Cholesterol Screening (Lipid Panel) 02/18/2028 02/17/2023, 02/17/2023, 01/02/2021, Additional history exists DTaP,Tdap,and Td Vaccines (3 - Td or Tdap) 08/03/2034 08/03/2024, 03/18/2021 Hepatitis C Screening Completed 03/04/2022, 018 Hepatitis B Vaccines Completed 12/07/2024, 02/17/20 23 HIB Vaccines Aged Out No longer eligi [...] MEDICA[place] Care Teams Revenue Specialist Relationship Specialty Start Date End Date Arun Givens MD [address] [place] [address] PCP - General Internal Medicine 12/05/21
== END 2024-12-28 14:17 | disposition home or self-care (01) ==
LOC: HO.HOS 13:55
PROVIDERS: Visit Provider Orthopaedic Surgery
DX: M54.2 Cervicalgia (principal); M48.02 Spinal stenosis, cervical region
CPT/HCPCS: 99213; G2211

== ENCOUNTER → 2024-12-28 13:54 | Outpatient (BNVA) | payer OTHER, SELFPAY | PROVIDERS: Visit Provider Orthopaedic Surgery | DX: M54.2 Cervicalgia (principal); M48.02 Spinal stenosis, cervical region | CPT/HCPCS: 99212 ==